=== PATIENT | female | born 1985 | race Caucasian/White ===

== ENCOUNTER 2019-11-20 04:53 | Emergency (ER) | payer SELFPAY ==
[~2019-11-20] VITALS: Ht 165.1 cm; Wt 113.6 kg
[2019-11-20 04:57] VITALS: Ht 165.1 cm; Wt 113.6 kg
--- NOTE | 2019-11-20 05:32 | NUR ---
DR. TOLBERT NOTIFIED AND REVIEWED PT'S BEHAVIOR AND ASSESSMENT RESULTS. PT IS A LOW RISK PER DR. TOLBERT. DR. TOLBERT STATED TO GIVE RESOURCES TO PT AT TIME OF DISCHARGE. NO FURTHER ORDERS AT THIS TIME. RESOURCES REVIEWED WITH PT AND SHE VERBALIZED UNDERSTANDING.
[2019-11-20 06:27] VITALS: BP 130/77
== END 2019-11-20 06:27 | disposition home or self-care (01) ==
LOC: D.ER 04:53
DX: F19.10 Other psychoactive substance abuse, uncomplicated (principal); R41.0 Disorientation, unspecified